=== PATIENT | male | born 1975 | race Two or more races ===

== ENCOUNTER 2025-06-17 07:28 | Emergency (ER) | payer OTHER ==
[~2025-06-17] VITALS: Ht 167.6 cm; Wt 83.9 kg
[2025-06-17 11:03] LABS: BASO % 0.7 % (0.1-1.2); EOS # 0.02 (0.04-0.54); EOS % 0.3 % (0.7-7.0); LYMPH # 1.63 (1.18-3.74); LYMPH % 23.1 % (19.3-53.1); MEAN PLATELET VOLUME 8.90 fl (9.4-12.4); MONO # 0.66 (0.24-0.82); MONO % 9.3 % (4.7-12.5); NEUT # 4.69 (1.56-6.13); NEUT % 66.5 % (34.0-71.1); RED CELL DISTRIBUTION WIDTH 11.6 % (11.6-14.4)
[2025-06-17 11:18] LABS: URINE APPEARANCE Clear; URINE BILIRRUBIN Negative (NEGATIVE); URINE BLOOD Negative; URINE COLOR Yellow; URINE GLUCOSE Negative (NEGATIVE); URINE KETONE 15 (NEGATIVE); URINE LEUKOCYTE Negative; URINE NITRATE Negative; URINE PROTEIN Negative (NEGATIVE); URINE UROBILINOGEN 0.2 E.U./dl
[2025-06-17 11:20] LABS: COVID-19 AG NEGATIVE (NEGATIVE)
[2025-06-17 11:23] LABS: URINE BACTERIA 13.1 uL (0.0-1933); URINE RBC 23.6 uL (0.0-20.8)
[2025-06-17 11:31] LABS: ALT/SGPT 56.0 U/L (12-78); AST/SGOT 37.0 U/L (15-37); BILIRUBIN TOTAL 0.36 mg/dL (0.3-1.2); BUN CREA RATIO 15.0 (7.0-25.0); CREATININE SERUM 0.91 mg/dL (0.70-1.30); GFR 88.92; GLOBULINA 3.9 G/DL (2.4-3.5); GLUCOSE FASTING 95.0 mg/dL (65-100); OSMOLALITY SERUM 283.0 MOSM/KG (275-295)
[2025-06-17 11:51] LABS: URINE CAST 0.29 uL (0.0-1.40); URINE EPITHELIAL CELLS 1.0 uL (0.0-38.8); URINE WBC 1.2 uL (0.0-23.2)
[2025-06-17] MEDS ORDERED: KETOROLAC TROMETHAMINE 30 MG VIAL IM ONE (12:30)
== END 2025-06-17 12:36 | disposition home or self-care (01) ==
LOC: ER 08:02
PROVIDERS: Preventive Medicine Public Health & General Preventive Medicine
DX: M94.0 Chondrocostal junction syndrome [Tietze] (principal); M79.10 Myalgia, unspecified site; E86.0 Dehydration; Z87.09 Personal history of other diseases of the respiratory system; Z20.822 Contact with and (suspected) exposure to COVID-19

== ENCOUNTER → 2025-11-01 | Emergency (ER) | payer OTHER ==
[~2025-11-01] VITALS: Ht 167.6 cm; Wt 79.4 kg
[~2025-11-01] MED LIST: ACETAMINOPHEN 500 MG GEL..CAP PO ONE; CETIRIZINE HCL 10 MG TABLET PO ONE; HYDROCODONE/CHLORPHEN P-STIREX 5 ML ML PO ONE; KETOROLAC TROMETHAMINE 60 MG VIAL IM ONE; MUCINEX DM ER1 EAC1 PO; OSEL75CA PO; ZITHROMAX500 MG PO; ZYRTEC10 MG PO
[2025-11-01 17:38] LABS: BASO % 0.7 % (0.1-1.2); EOS # 0.00 (0.04-0.54); EOS % 0.0 % (0.7-7.0); LYMPH # 0.33 (1.18-3.74); LYMPH % 3.6 % (19.3-53.1); MEAN PLATELET VOLUME 8.50 fl (9.4-12.4); MONO # 0.83 (0.24-0.82); MONO % 9.0 % (4.7-12.5); NEUT # 7.98 (1.56-6.13); NEUT % 86.5 % (34.0-71.1); RED CELL DISTRIBUTION WIDTH 12.8 % (11.6-14.4)
[2025-11-01 19:29] LABS: COVID-19 AG NEGATIVE (NEGATIVE)
== END | disposition home or self-care (01) ==
LOC: ER 15:36
PROVIDERS: General Practice
DX: J98.8 Other specified respiratory disorders (principal); B34.8 Other viral infections of unspecified site; Z20.822 Contact with and (suspected) exposure to COVID-19; Z87.09 Personal history of other diseases of the respiratory system